=== PATIENT | female | born 1955 | race Caucasian/White ===

== ENCOUNTER 2016-07-18 23:27 | Emergency (ER) | payer OTHER ==
[~2016-07-18] VITALS: Ht 167.6 cm; Wt 86.2 kg
[~2016-07-18 23:27] MED LIST: FAMVIR 500MG500 MG PO
--- NOTE | 2016-07-19 00:45 | ED GENERAL ADULT ---
History of Present Illness General Chief Complaint: General Adult Stated Complaint: FEELING DIZZY FEELING HOT,HIGH BP Source: patient, family Exam Limitations: no limitations Vital Signs & Intake/Output Vital Signs & Intake/Output Vital Signs Date Time Temp Pulse Resp B/P Pulse O2 O2 Flow FiO2 Ox Delivery Rate 07/19 0222 97.2 72 20 156/70 95 Room Air 07/18 2340 98.5 75 185/82 ED Intake and Output 07/19 0000 07/18 1200 Intake Total Output Total Balance Patient 190 lb Weight Allergies Coded Allergies: NO KNOWN ALLERGIES (12/26/15) Reconcile Medications No Known Home Medications Triage Note: PT TO ED WITH MULTIPLE COMPLAINTS THAT STARTEED TODAY" DIZZINESS, FEELS HOT, HIGH BP, BLURRY VISION, HOT EARS, "HEART POUNDING IN MY CHEST", FEELING SHAKY. BP 185/82. NO PMH OF HTN. ALSO C/O SALTY TASTE IN MOUTH FOR A WEEK. Triage Nurses Notes Reviewed? yes HPI: Patient presents for evaluation of dizziness, high blood pressure, trouble focusing her vision, arm heaviness and a salty taste in her mouth. Symptoms have been present for up to 1 week. In addition she has also felt shakiness but denies fever, cold symptoms or tinnitus. Eyes chest pain or trouble breathing. She states that she just hasn't been right since laser dental surgery in October of last year. Symptoms are described as moderate to severe and nothing seems to make them better or worse. Past History Travel History Traveled to [place] past 21 day No Medical History Any Pertinent Medical History? 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 No Review of Systems Review of Systems Constitutional: Reports: no symptoms. EENTM: Reports: see HPI, visual changes. Respiratory: Reports: no symptoms. Cardiovascular: Reports: no symptoms. GI: Reports: no symptoms. Genitourinary: Reports: no symptoms. Musculoskeletal: Reports: no symptoms. Skin: Reports: no symptoms. Neurological/Psychological: Reports: tremors. Hematologic/Endocrine: Reports: no symptoms. Immunologic/Allergic: Reports: no symptoms. All Other Systems: Reviewed and Negative Physical Exam Physical Exam General Appearance: SEE BELOW Comments: Gen.: Well-nourished, well-developed, no acute respiratory distress. Head: Normocephalic, atraumatic. Eyes: Normal inspection bilaterally, PERRLA, EOMI Ears: Normal inspection bilaterally Nose: Normal inspection Throat/mouth : Moist mucosa Neck: Supple, full range of motion, no goiter question of left thyroid nodule, carotid pulses equal Heart: Regular rate and rhythm, no murmurs rubs or gallops Lungs: Clear to auscultation bilaterally with normal air entry Chest: Nontender Back: Normal range of motion Abdomen: Soft, nontender, nondistended, normal bowel sounds Extremities: Normal range of motion grossly, equal radial pulses, no cyanosis clubbing or edema Neurologic: Cranial nerves 2 through 12 intact, speech is clear, gait is stable Skin: warm and dry Psychiatric: Calm, cooperative, no apparent delusions or hallucinations Core Measures ACS in differential dx? No CVA/TIA Diagnosis: No Severe Sepsis Present: No Septic Shock Present: No Progress Differential Diagnoses I considered the following diagnoses in my evaluation of the patient: Viral syndrome, hypothyroidism, anxiety, Plan of Care: Orders Procedure Date/time Status THYROID STIMULATING HORMONE 07/19 44 Complete MAGNESIUM 07/19 44 Complete FREE T4 07/19 44 Complete Add-on Test (ER Only) 07/19 43 Active URINALYSIS 07/19 33 Complete TROPONIN LEVEL 07/19 33 Complete COMPREHENSIVE METABOLIC PANEL 07/19 33 Complete CBC WITHOUT DIFFERENTIAL 07/19 33 Complete EKG 07/18 2344 Active Laboratory Tests 07/19/16 0045: Anion Gap 9, Estimated GFR > 60, BUN/Creatinine Ratio 24.4, Glucose 87, Calcium 9.4, Magnesium 2.0, Total Bilirubin 0.4, AST 20, ALT 32, Alkaline Phosphatase 64 , Troponin I < 0.01, Total Protein 7.0, Albumin 4.1, Globulin 2.9, Albumin/ Globulin Ratio 1.4, TSH 2.310, Free T4 0.85, CBC w Diff NO MAN DIFF REQ, RBC 4.54, MCV 84.2, MCH 27.7, RDW 14.6 H, MPV 7.9, Gran % 56.6, Lymphocytes % 34.7, Monocytes % 7.1, Eosinophils % 1.2, Basophils % 0.4, Absolute Granulocytes 5.8, Absolute Lymphocytes 3.5 H, Absolute Monocytes 0.7 H, Absolute Eosinophils 0.1 , Absolute Basophils 0, PUBS MCHC 32.8 L 07/19/16 0038: Urine Color YEL, Urine Clarity CLEAR, Urine pH 6.5, Ur Specific [place] <= 1.005 , Urine Protein NEG, Urine Ketones NEG, Urine Nitrite NEG, Urine Bilirubin NEG, Urine Urobilinogen 0.2, Ur Leukocyte Esterase NEG, Ur Microscopic EXAM NOT REQUIRED, Urine Hemoglobin NEG, Urine Glucose NEG Initial ED EKG: NSR, rate (70), nonspecific ST T wave chg Comments: 07/19/2016 3:27:03 AM I have updated Martina on her test results. The etiology of her symptom complex is unclear at this point. I've asked that she follow up with her primary care doctor. Departure Departure Disposition: HOME OR SELF CARE Condition: Stable Clinical Impression Primary Impression: Dizziness Referrals: SEMAJ STREETER,MARGOTH Wong (PCP/Family) Additional Instructions: Follow Up with your primary care doctor for reevaluation this week. Return if any concerns or sudden worsening. Departure Forms: Customer Survey General Discharge Information Prescriptions: Current Visit Scripts No Known Home Medications Critical Care Note Critical Care Note Critical Care Time: non-applicable
[2016-07-19 00:51] LABS: ABSOLUTE BASOPHIL COUNT 0 /CUMM (0.0-0.2); ABSOLUTE EOSINOPHIL COUNT 0.1 /CUMM (0.0-0.7); ABSOLUTE GRANULOCYTE CT 5.8 /CUMM (1.4-6.5); ABSOLUTE LYMPH COUNT 3.5 /CUMM (1.2-3.4); ABSOLUTE MONOCYTE COUNT 0.7 /CUMM (0.10-0.60); BASOPHIL % 0.4 % (0.0-2.0); EOSINOPHIL % 1.2 % (0-5); GRANULOCYTE % 56.6 % (42.2-75.2); HEMATOCRIT 38.2 % (37-47); MEAN CORPUSCULAR HGB 27.7 PG (27.0-31.0); MEAN CORPUSCULAR HGB CONC 32.8 G/DL (33.0-37.0); MEAN CORPUSCULAR VOLUME 84.2 FL (81.0-99.0); MEAN PLATELET VOLUME 7.9 FL (7.4-10.4); PLATELET COUNT 333 /CUMM (130-400); RBC DISTRIBUTION WIDTH 14.6 % (11.5-14.5); RED BLOOD CELL CT 4.54 /CUMM (4.20-5.40); WHITE BLOOD CELL COUNT 10.2 /CUMM (4.8-10.8)
[2016-07-19 03:42] VITALS: BP 155/75
== END 2016-07-19 03:45 ==
LOC: ERH 23:27
PROVIDERS: Emergency Medicine
DX: R42 Dizziness and giddiness (principal)
CPT/HCPCS: 81003; 93005; 93010